=== PATIENT | female | born 1945 | race Caucasian/White ===

== ENCOUNTER 2022-08-30 08:02 | Emergency (ER) | payer MEDICARE, OTHER, SELFPAY ==
[2022-08-30 08:03] VITALS: BP 144/92; PULSE 72; RESP 16; TEMP 36.5; O2SAT 98; BMI 46.4
[2022-08-30] MEDS: Glucagon 1 MG/ML Syringe IV (08:34)
--- NOTE | 2022-08-30 08:40 | EX.ED.DYSGE1 ---
HPI History of Present Illness Chief Complaint: Foreign Body Informant: patient Narrative Narrative: Presents by EMS due to pill obstruction. Patient states this morning took 4 of her morning pills at 1 time 3 of a more large, she started choking having trouble breathing and swallowing. She called EMS. Currently no trouble breathing. No issues in the past. Had endoscopy years ago with no interventions. She states she was scared therefore called EMS. She is on Xarelto and baby aspirin history of paroxysmal A-fib. Prior similar symptoms: No PFSH PFS Medical History Atherosclerosis of coronary artery of [place] heart without angina pectoris Elevated coronary artery calcium score (~05/26/20) Essential hypertension History of [place] (myocardial infarction) History of pancreatitis Hyperlipidemia Osteoporosis Paroxysmal atrial fibrillation Paroxysmal atrial flutter PVD (peripheral vascular disease) SVT (supraventricular tachycardia) Type 2 diabetes mellitus Home Medications cholecalciferol (vitamin D3) 50 mcg (2,000 unit) tablet 50 mcg PO DAILY 02/08/22 [History Last Taken Unknown] cyanocobalamin (vitamin B-12) 5,000 mcg sublingual tablet (Vitamin B-12) 5,000 mcg sublingual DAILY 02/08/22 [History Last Taken Unknown] dulaglutide 3 mg/0.5 mL subcutaneous pen injector (Trulicity) 3 mg subcut QWEEK 02/08/22 [History Last Taken Unknown] aspirin 81 mg tablet,delayed release (Adult Aspirin Regimen) 81 mg PO DAILY #90 tabs 02/23/22 [Rx Last Taken Unknown] empagliflozin 25 mg-metformin ER 1,000 mg tablet,extended release 24hr (Synjardy XR) 1 tab PO DAILY #90 ea 02/23/22 [Rx Last Taken Unknown] metformin 1,000 mg tablet 1,000 mg PO DAILY #90 tabs 02/23/22 [Rx Last Taken Unknown] metoprolol tartrate 25 mg tablet 25 mg PO BID #180 tabs 02/23/22 [Rx Last Taken Unknown] rivaroxaban 20 mg tablet (Xarelto) 20 mg PO DAILY #90 tabs 02/23/22 [Rx Last Taken Unknown] rosuvastatin 5 mg tablet 5 mg PO DAILY #90 tabs 02/23/22 [Rx Last Taken Unknown] valsartan 320 mg tablet 320 mg PO DAILY #90 tabs 02/23/22 [Rx Last Taken Unknown] Allergy/AdvReac Type Severity Reaction Status Date / Time adhesive tape Allergy Unknown Unknown Verified 08/30/22 08:08 niacin Allergy Unknown unknown Verified 08/30/22 08:08 sitagliptin [From Januvia] Allergy Unknown Unknown Verified 08/30/22 08:08 [id number] Reductase Allergy Unknown Intolerant Verified 08/30/22 08:08 Inhibitor Family History Mother CVA (cerebral vascular accident) Father CAD (coronary artery disease) CVA (cerebral vascular accident) Myocardial infarction, Onset Age: 40 Diabetes Hypertension Sister CAD (coronary artery disease) CABG Grandmother Diabetes CVA (cerebral vascular accident) Aunt Breast cancer Surgical History History of History of cholecystectomy History of colonoscopy History of coronary artery stent placement (2014) Social History Smoking Status: Never smoker alcohol intake: never ROS ROS ED Constitutional Constitutional ED: Denies chills, fever(s) or sweats Eyes Eyes: Denies change in vision ENT ENT ED: Reports dysphagia; Denies sore throat Cardiovascular Cardiovascular: Denies chest pain, leg edema, palpitations or racing heartbeat Respiratory/Chest Respiratory/Chest: Denies cough, dyspnea or dyspnea on exertion Gastrointestinal Gastrointestinal: Denies abdominal pain, diarrhea, nausea or vomiting Genitourinary Genitourinary ED: Denies dysuria, hematuria or urinary frequency Musculoskeletal Musculoskeletal: Denies back pain, extremity pain or neck pain Integumentary Denies rash or wounds Neurologic Neurologic: Denies headache(s), paresthesias or weakness EXAM Physical Exam Const Vital Signs: 08/30/22 08:03 Temperature 97.7 F L Temperature Source Oral Pulse Rate 72 Respiratory Rate 16 Blood Pressure 144/92 H Blood Pressure Mean 109 Pulse Ox 98 Oxygen Delivery Method Room Air Positive well nourished and well developed Constitutional Narrative: For stating maintaining her airway General Appearance ED: well developed and NAD HEENT Reports moist mucous membranes HEENT Narrative: No posterior pharyngeal erythema, no stridor. normocephalic and atraumatic Eyes PERRL, EOMs intact bilaterally and conjunctivae normal General Eye ED: Yes normal appearance of both eyes Neck no lymphadenopathy and supple General: Negative for tenderness Chest Wall Chest: Negative for tenderness Resp normal respiratory effort and normal air movement Effort and Inspection: symmetric chest movement; Negative for respiratory distress Cardio regular rate, regular rhythm and no murmurs Peripheral Pulses: pulses 2+ throughout GI normal to inspection, nondistended, normoactive bowel sounds and non-tender Palpation: Negative for guarding or rebound tenderness present Back/Spine no CVA tenderness and no thoracic nor lumbar tenderness Extremity normal to inspection General Extremety ED: Negative for edema or tenderness General Extremity: Negative for edema Neuro oriented x3 and no sensory deficits noted Sensorium / Orientation: awake and alert Skin no rashes or lesions noted and no wounds MDM MDM MDM Narrative Medical decision making narrative: Interventions / MDM: Differential diagnosis: Esophageal obstruction, transient aspiration Diagnosis considered but do not suspect: N/A My EKG interpretation: N/A Imaging independently reviewed and interpreted by myself: N/A External documents reviewed: N/A Test considered but not ordered:N/A ED course: Patient vital stable 98% on room air. I was bedside evaluate patient, I attempted: Drink, immediately she started vomiting with a small sip. IV established, will try IV glucagon. Basic labs and coags obtained due to patient being on Xarelto. 0925: Labs are stable, reevaluation room, attempted carbonation drink again bedside she is able to hold things down however felt some discomfort, therefore use water and she is able to drink it down smoothly and symptoms felt like it improved. Re-evaluation: 1020: Symptoms remain improved she drank a cola again and stayed down no return of symptoms. With acute onset, do not PPI as needed at this time as it resolved quickly. She aspirated likely initially, however no respiratory complaints on multiple reevaluations. 90% room air. She is given outpatient follow-up with GI instructed to swallow her pills 1 at a time. All questions were answered. Disposition discussed with patient/family/significant other: Patient Case discussed with consulting clinician: N/A This note was generated with [employer] dictation software. It may contain incorrect words, spelling, and punctuation that were not noted in checking the note before signing. Lab Data Attestation: I reviewed the patient's lab results. Labs: Laboratory Results - last 24 hr 08/30/22 08:35 WBC 8.2 RBC 5.46 H Hgb 16.7 H Hct 50.7 H MCV 92.9 MCH 30.6 MCHC 32.9 RDW Std Deviation 42.6 RDW Coeff of Serina 12.5 Plt Count 235 MPV 9.9 Immature Gran % (Auto) 0.400 Neut % (Auto) 69.2 Lymph % (Auto) 18.8 L Williams % (Auto) 9.5 Eos % (Auto) 1.6 Baso % (Auto) 0.5 Absolute Neuts (auto) 5.7 Absolute Lymphs (auto) 1.54 Nucleated RBC % 0 PT 17.2 H INR 1.4 APTT 39.0 H Sodium 137 Potassium 4.3 Chloride 103 Carbon Dioxide 28.0 Anion Gap 6 BUN 16 Creatinine 0.93 Estim Creat Clear Calc 41.34 Est GFR (MDRD) Af Amer 76 Est GFR (MDRD) Non-Af 63 BUN/Creatinine Ratio 17.3 Glucose 204 H Calcium 9.4 Discharge Plan Triage Chief Complaint: Foreign Body ED Provider: Boo Mar Dx/Rx/DC Orders Clinical Impression: Acute esophageal obstruction Instructions: ED Esophageal Foreign Body, Resolved Prescriptions: No Action Trulicity 3 mg/0.5 mL pen injector 3 mg subcut QWEEK cyanocobalamin (vitamin B-12) [Vitamin B-12] 5,000 mcg tablet, sublingual 5,000 mcg sublingual DAILY cholecalciferol (vitamin D3) 50 mcg (2,000 unit) tablet 50 mcg PO DAILY aspirin [Adult Aspirin Regimen] 81 mg tablet,delayed release (DR/EC) 81 mg PO DAILY Qty: 90 3RF metoprolol tartrate 25 mg tablet 25 mg PO BID Qty: 180 3RF Xarelto 20 mg tablet 20 mg PO DAILY Qty: 90 3RF Rx Instructions: must administer with evening meal rosuvastatin 5 mg tablet 5 mg PO DAILY Qty: 90 3RF valsartan 320 mg tablet 320 mg PO DAILY Qty: 90 3RF Synjardy XR 25-1,000 mg tablet, IR - ER, biphasic 24hr 1 tab PO DAILY Qty: 90 3RF metformin 1,000 mg tablet 1,000 mg PO DAILY Qty: 90 3RF Primary Care Provider: Rekha Geronimo Referrals: Rekha Geronimo DO [Primary Care Provider] - Friend,Abram, DO [Med Staff - Active Staff] - 1-2 Weeks Activity Restrictions/Additional Instructions: Take your pills 1 at a time and drink plenty of water afterwards. Follow-up with Dr. Haile WHITNEY for outpatient evaluation. Disposition Disposition: Home, Self Care
[2022-08-30 08:49] LABS: Absolute Lymphocyte Count 1.54 X10^3/uL (0.83-4.51); Absolute Neutrophil Count 5.7 X10^3/uL (2.0-7.7); Basophil# 0.04 X10^3/uL; Basophil% 0.5 % (0-1); Eosinophil# 0.13 X10^3/uL; Eosinophils% 1.6 % (0-5); Hematocrit 50.7 % (37-47); Hemoglobin 16.7 g/dL (12.0-15.0); Lymphocyte # 1.54 X10^3/ul (0.83-4.51); Lymphocyte % 18.8 % (19-41); Mean Corp Hgb Conc 32.9 g/dL (32-36); Mean Corpuscular Hgb 30.6 pg (27.0-32.0); Mean Corpuscular Volume 92.9 fL (81-99); Mean Platelet Vol. 9.9 fl (6.2-12.0); Monocyte# 0.78 X10^3/uL; Monocyte% 9.5 % (0-10); NRBC Flagged by Analyzer 0 % (0-5); Neutrophil # 5.65 X10^3/uL (2.7-7.7); Neutrophil % 69.2 % (47-70); Platelet Count 235 K/mm3 (150-450); RBC Distribution Width CV 12.5 % (11.6-14.6); RBC Distribution Width SD 42.6 fl (35.1-43.9); Red Blood Count 5.46 M/mm3 (4.2-5.4); White Blood Count 8.2 K/mm3 (4.4-11.0)
[2022-08-30 09:03] LABS: Anion Gap 6 (5-15); BUN 16 mg/dL (7-18); BUN/Creat Ratio 17.3 RATIO (10-20); Calcium,Total 9.4 mg/dL (8.5-10.1); Chloride 103 mmol/L (98-107); Creatinine, Serum 0.93 mg/dL (0.55-1.02); EST Glomerular Filtration Rate 63 mL/min (>60); Est Glom Filt Rate - Afr Amer 76 mL/min (>60); Estimated Creatinine Clearance 41.34 ml/min; Glucose 204 mg/dL (74-106); Potassium 4.3 mmol/L (3.5-5.1); Sodium Level 137 mmol/L (136-145)
[2022-08-30 09:37] LABS: International Normalized Ratio 1.4; Prothrombin Time (Protime)PT. 17.2 SECONDS (11.7-14.9)
[2022-08-30 10:53] VITALS: BP 123/71; PULSE 72; RESP 16; O2SAT 94
== END 2022-08-30 10:55 | disposition home or self-care (01) ==
PROVIDERS: Emergency Provider Emergency Medicine; PCP Family Medicine; Visit Provider Emergency Medicine
DX: K22.2 Esophageal obstruction (principal); I48.0 Paroxysmal atrial fibrillation; E11.9 Type 2 diabetes mellitus without complications; I25.10 Atherosclerotic heart disease of native coronary artery without angina pectoris; I10 Essential (primary) hypertension; E78.5 Hyperlipidemia, unspecified; Z79.01 Long term (current) use of anticoagulants; I25.2 Old myocardial infarction
CPT/HCPCS: 80048; 85025; 85610; 85730; 96374; 99285; A4216; J1610

== ENCOUNTER 2022-09-02 07:13 | Emergency (ER) | payer MEDICARE, OTHER, SELFPAY ==
[2022-09-02 07:14] VITALS: BP 169/94; PULSE 75; RESP 16; TEMP 36.6; O2SAT 95; BMI 45.8
--- NOTE | 2022-09-02 07:20 | EDS_ITS ---
HPI History of Present Illness Chief Complaint: Dizziness [facility] Medical History Atherosclerosis of coronary artery of [place] heart without angina pectoris Elevated coronary artery calcium score (~05/26/20) Essential hypertension History of [place] (myocardial infarction) History of pancreatitis Hyperlipidemia Osteoporosis Paroxysmal atrial fibrillation Paroxysmal atrial flutter PVD (peripheral vascular disease) SVT (supraventricular tachycardia) Type 2 diabetes mellitus Home Medications cholecalciferol (vitamin D3) 50 mcg (2,000 unit) tablet 50 mcg PO DAILY 02/08/22 [History Last Taken Unknown] cyanocobalamin (vitamin B-12) 5,000 mcg sublingual tablet (Vitamin B-12) 5,000 mcg sublingual DAILY 02/08/22 [History Last Taken Unknown] dulaglutide 3 mg/0.5 mL subcutaneous pen injector (Trulicity) 3 mg subcut QWEEK 02/08/22 [History Last Taken Unknown] aspirin 81 mg tablet,delayed release (Adult Aspirin Regimen) 81 mg PO DAILY #90 tabs 02/23/22 [Rx Last Taken Unknown] empagliflozin 25 mg-metformin ER 1,000 mg tablet,extended release 24hr (Synjardy XR) 1 tab PO DAILY #90 ea 02/23/22 [Rx Last Taken Unknown] metformin 1,000 mg tablet 1,000 mg PO DAILY #90 tabs 02/23/22 [Rx Last Taken Unknown] metoprolol tartrate 25 mg tablet 25 mg PO BID #180 tabs 02/23/22 [Rx Last Taken Unknown] rivaroxaban 20 mg tablet (Xarelto) 20 mg PO DAILY #90 tabs 02/23/22 [Rx Last Taken Unknown] rosuvastatin 5 mg tablet 5 mg PO DAILY #90 tabs 02/23/22 [Rx Last Taken Unknown] valsartan 320 mg tablet 320 mg PO DAILY #90 tabs 02/23/22 [Rx Last Taken Unknown] Allergy/AdvReac Type Severity Reaction Status Date / Time adhesive tape Allergy Unknown Unknown Verified 08/30/22 08:08 niacin Allergy Unknown unknown Verified 08/30/22 08:08 sitagliptin [From Januvia] Allergy Unknown Unknown Verified 08/30/22 08:08 [id number]-[id number]-PrD Reductase Allergy Unknown Intolerant Verified 08/30/22 08:08 Inhibitor Family History Mother CVA (cerebral vascular accident) Father CAD (coronary artery disease) CVA (cerebral vascular accident) Myocardial infarction, Onset Age: 40 Diabetes Hypertension Sister CAD (coronary artery disease) CABG Grandmother Diabetes CVA (cerebral vascular accident) Aunt Breast cancer Surgical History History of History of cholecystectomy History of colonoscopy History of coronary artery stent placement (2014) Social History Smoking Status: Never smoker alcohol intake: never EXAM Physical Exam Const Vital Signs: 09/02/22 07:14 09/02/22 07:14 Temperature 98 F 98 F Temperature Source Temporal Temporal Pulse Rate 75 75 Respiratory Rate 16 16 Blood Pressure 169/94 H 169/94 H Blood Pressure Mean 119 119 Pulse Ox 95 95 Oxygen Delivery Method Room Air Room Air MDM MDM MDM Narrative Medical decision making narrative: HISTORY OF PRESENT ILLNESS: 77-year-old female here with concern for dizziness/lightheadedness. Patient notes transient lightheadedness, dizziness, diaphoresis, bilateral upper extremity numbness and tingling that was transient and has since resolved. She further states she developed cute onset of diaphoresis, lightheadedness and bilateral upper extremity numbness and tingling last for approximate 20 minutes and resolve spontaneously. Denies any loss of consciousness. Denies any chest pain. Denies any focal numbness or weakness at this time. Recent bleeding diathesis. Does note she did not take adequate p.o. 3 days ago secondary to esophageal pill obstruction but no she is drinking extra fluids since then. Denies any urinary complaints. REVIEW OF SYSTEMS: Pertinent positives: Dizziness, lightheadedness, diaphoresis, numbness and tingling Pertinent negatives: Focal weakness, slurred speech, chest pain, syncope PHYSICAL EXAM: Nursing triage notes reviewed, Vital signs reviewed Constitutional: please see mdm HENT: MMM Eyes: Pupils equal round and reactive to light, Extraocular muscles intact Neck: No stridor, no JVD, full neck ROM Lungs: Clear to auscultation, No wheezing or rales. No increased work of breathing, no conversational dyspnea, no accessory muscle use, no nasal flaring. No respiratory distress noted Heart: Regular rate and rhythm, No murmurs, No rubs and No gallops, 2+ distal pulses (radial, femoral, posterior tibial) in all extremities Abdomen: Soft, there is no tenderness, rigidity, rebound or guarding, no obvious peritoneal signs, no palpable pulsatile abdominal masses, no auscultated abdominal bruit : No CVAT Extremities: No edema Neuro: Alert and oriented x3, neuro exam at baseline, cranial nerves II through XII are intact. No pain with extraocular muscle movement. There is negative test of skew. Normal speech. 5 of 5 strength in upper and lower extremities in flexion extension. Intact sensation to light touch in upper and lower extremity dermatomes. No truncal or extremity ataxia. No dysdiadochokinesia. Normal gait. 2+ reflexes. No meningeal signs. Negative Babinski. NIH of 0 Skin: No rash or lesions noted MEDICAL DECISION MAKING: Chief Complaint: Lightheadedness External records reviewed: Seen for acute esophageal obstruction on 08/30/2022. This was all spontaneously patient was discharged Factors affecting care: Paroxysmal A-fib on Xarelto Social determinants of health: Elderly History obtained from others: EMS Consults: none ALL IMAGES (IF OBTAINED) HAVE BEEN PERSONALLY REVIEWED AND INTERPRETED BY MYSELF. EMS EKG showed normal sinus rhythm, left axis deviation, no STEMI MDM Narrative: Patient was hemodynamically stable, afebrile, nontoxic-appearing. Neurologic exam was nonfocal. Negative hints exam. I considered the following differential diagnosis: Dehydration, ACS, arrhythmia, posterior circulation CVA, anemia, electrolyte disturbance Given nonfocal neuro exam with no evidence of ataxia, focal neurodeficits or signs of posterior circulation stroke I do not think the patient is having an acute CVA. I was more concerned about arrhythmia, anemia, electrolyte abnormalities, ACS, dehydration especially in the setting of recent esophageal pill obstruction. Patient's initial EKG showed a normal sinus rhythm with normal axis and normal intervals, no STEMI. Delta troponin negative. No significant anemia electrolyte abnormality or signs of heart failure. There is no signs of pneumonia or other infection. Patient's symptoms are unclear however likely not life-threatening given negative work-up. Recommend increase p.o. intake and follow-up with her primary care physician as an outpatient. I completed a structured, evidence-based clinical evaluation to screen for acute stroke and neurologic deficits in this patient. The patient has a normal detailed neurologic exam, which is highly sensitive for dangerous causes of dizziness, vertigo, or loss of balance. The evidence indicates that the patient is very low risk for an acute neurologic emergency and this is consistent with my clinical intuition. The risk of further workup or hospitalization is likely higher than the risk of the patient having a stroke or other dangerous neurologic condition. It is, therefore, in the patient?s best interest not to do additional emergent testing or to be hospitalized at this time. Shared Decision-Making I have discussed with the patient my clinical impression and the result of an evidence-based clinical evaluation to screen for stroke, as well as the risk of further testing and hospitalization. The evidence shows that the risk for stroke is less than 1%. Although the risk of stroke has not been completely eliminated, the risks of further testing or hospitalization likely exceed any potential benefit, and the patient agrees with not pursuing further emergent evaluation or hospitalization for stroke evaluation at this time. The patient and/or family, caregivers express understanding. The patient and/or family, caregivers agrees with the plan. Total critical care time today provided was at least 0 minutes. This excludes separately billable procedures. Critical care time (if documented) is secondary to the patient having high probability of clinically significant/life threatening deterioration in the patient's condition which required my urgent intervention. Lab Data Attestation: I reviewed the patient's lab results. Lab results narrative: Troponin is negative, no evidence of myocardial ischemia BNP elevated consistent with increased myocardial stretch BMP without evidence of significant electrolyte abnormalities, no anion gap, no acute kidney injury. CBC without leukocytosis, severe anemia, no thrombocytopenia. Labs: Laboratory Results - last 24 hr 09/02/22 09/02/22 07:15 09:20 WBC 9.8 RBC 5.16 Hgb 15.9 H Hct 47.8 H MCV 92.6 MCH 30.8 MCHC 33.3 RDW Std Deviation 42.5 RDW Coeff of Serina 12.3 Plt Count 226 MPV 10.2 Immature Gran % (Auto) 0.500 Neut % (Auto) 76.8 H Lymph % (Auto) 12.9 L [place] % (Auto) 8.3 Eos % (Auto) 1.1 Baso % (Auto) 0.4 Absolute Neuts (auto) 7.5 Absolute Lymphs (auto) 1.27 Nucleated RBC % 0 Sodium 137 Potassium 4.1 Chloride 103 Carbon Dioxide 26.0 Anion Gap 8 BUN 16 Creatinine 0.85 Estim Creat Clear Calc 45.23 Est GFR (MDRD) Af Amer 84 Est GFR (MDRD) Non-Af 69 BUN/Creatinine Ratio 18.8 Glucose 238 H Calcium 9.0 Troponin I High Sens 14 17 B-Natriuretic Peptide 139.7 H Radiography Chest X-Ray - ED: Read by ED Physician Diagnostic Testing: Clinical Impression(s) from Imaging Studies Chest X-Ray 09/02/22 07:50 IMPRESSION: No radiographic evidence of acute cardiopulmonary disease. Electronically Signed: Elaine Jimenez MD at 8:12 EDT , I have personally reviewed the patient's chest x-ray. Chest x-ray is unremarkable for pulmonary edema, pneumothorax, pneumonia or focal cardiopulmonary abnormality. Discharge Plan Triage Chief Complaint: Dizziness ED Provider: Bravo De La Cruz Dx/Rx/DC Orders Clinical Impression: Dizziness Instructions: Dizziness Fainting Causes Prescriptions: No Action Trulicity 3 mg/0.5 mL pen injector 3 mg subcut QWEEK cyanocobalamin (vitamin B-12) [Vitamin B-12] 5,000 mcg tablet, sublingual 5,000 mcg sublingual DAILY cholecalciferol (vitamin D3) 50 mcg (2,000 unit) tablet 50 mcg PO DAILY aspirin [Adult Aspirin Regimen] 81 mg tablet,delayed release (DR/EC) 81 mg PO DAILY Qty: 90 3RF metoprolol tartrate 25 mg tablet 25 mg PO BID Qty: 180 3RF Xarelto 20 mg tablet 20 mg PO DAILY Qty: 90 3RF Rx Instructions: must administer with evening meal rosuvastatin 5 mg tablet 5 mg PO DAILY Qty: 90 3RF valsartan 320 mg tablet 320 mg PO DAILY Qty: 90 3RF Synjardy XR 25-1,000 mg tablet, IR - ER, biphasic 24hr 1 tab PO DAILY Qty: 90 3RF metformin 1,000 mg tablet 1,000 mg PO DAILY Qty: 90 3RF Primary Care Provider: Rekha Geronimo Referrals: Rekha Geronimo DO [Primary Care Provider] - Activity Restrictions/Additional Instructions: Thank you for trusting us with your care today! Please take Tylenol (2 pills, 650 mg), ibuprofen (2 pills, 400 mg) every 6 hours as needed for pain and fever control. Please return to the emergency department if your symptoms change or worsen. Please follow with your primary care physician for further outpatient evaluation and management. Disposition Disposition: Home, Self Care Discharge Date/Time: 09/02/22 10:41
--- NOTE | 2022-09-02 07:30 | EKG12_ITS ---
Test Reason : dizziness Blood Pressure : / mmHG Vent. Rate : 074 BPM Atrial Rate : 074 BPM P-R Int : 148 ms QRS Dur : 090 ms QT Int : 382 ms P-R-T Axes : 016 -53 073 degrees QTc Int : 424 ms Sinus rhythm with Premature atrial complexes Left axis deviation Lateral infarct , age undetermined Inferior-posterior infarct , age undetermined Abnormal ECG Confirmed by TARUN MCKEON, ELIGIO ([id number]), loan expeditor FRED DINH ([id number]) on 09/03/2022 10:01:42 AM Referred By: Qamar Confirmed By:ELIGIO MCNEIL MD
[2022-09-02 07:48] LABS: Absolute Lymphocyte Count 1.27 X10^3/uL (0.83-4.51); Absolute Neutrophil Count 7.5 X10^3/uL (2.0-7.7); Basophil# 0.04 X10^3/uL; Basophil% 0.4 % (0-1); Eosinophil# 0.11 X10^3/uL; Eosinophils% 1.1 % (0-5); Hematocrit 47.8 % (37-47); Hemoglobin 15.9 g/dL (12.0-15.0); Lymphocyte # 1.27 X10^3/ul (0.83-4.51); Lymphocyte % 12.9 % (19-41); Mean Corp Hgb Conc 33.3 g/dL (32-36); Mean Corpuscular Hgb 30.8 pg (27.0-32.0); Mean Corpuscular Volume 92.6 fL (81-99); Mean Platelet Vol. 10.2 fl (6.2-12.0); Monocyte# 0.82 X10^3/uL; Monocyte% 8.3 % (0-10); NRBC Flagged by Analyzer 0 % (0-5); Neutrophil # 7.54 X10^3/uL (2.7-7.7); Neutrophil % 76.8 % (47-70); Platelet Count 226 K/mm3 (150-450); RBC Distribution Width CV 12.3 % (11.6-14.6); RBC Distribution Width SD 42.5 fl (35.1-43.9); Red Blood Count 5.16 M/mm3 (4.2-5.4); White Blood Count 9.8 K/mm3 (4.4-11.0)
--- NOTE | 2022-09-02 07:50 | RAD_ITS ---
INDICATION: chest pain EXAMINATION/TECHNIQUE: X-RAY - XR Chest 1 View COMPARISON: No relevant prior comparison study available FINDINGS: LINES/DEVICES: None. LUNGS: No consolidation, edema or effusion. No pneumothorax. MEDIASTINUM AND CARDIOVASCULAR STRUCTURES: Cardiac silhouette not enlarged. Central airways and mediastinal contour are unremarkable. BONES AND SOFT TISSUES: Unremarkable. RAD/Chest 1 View (Portable) IMPRESSION: No radiographic evidence of acute cardiopulmonary disease. Electronically Signed: Elaine Jimenez MD at 8:12 EDT ,
--- NOTE | 2022-09-02 07:57 | NURSING ---
I CALLED THE TRANSFER LINE AGAIN TO GET JAMEL OF HIS ON AIR HOST. WE ARE STILL WAITING FOR A CALL BACK.
[2022-09-02 08:02] LABS: Anion Gap 8 (5-15); BUN 16 mg/dL (7-18); BUN/Creat Ratio 18.8 RATIO (10-20); Chloride 103 mmol/L (98-107); Creatinine, Serum 0.85 mg/dL (0.55-1.02); EST Glomerular Filtration Rate 69 mL/min (>60); Est Glom Filt Rate - Afr Amer 84 mL/min (>60); Estimated Creatinine Clearance 45.23 ml/min; Glucose 238 mg/dL (74-106); Potassium 4.1 mmol/L (3.5-5.1); Sodium Level 137 mmol/L (136-145); Troponin-I HS (w/2H Reflex) 14 pg/mL (3.0-54.0)
[2022-09-02 08:08] LABS: BNP,B-Type NATRIURETIC PEPTIDE 139.7 pg/mL (0-100)
[2022-09-02 09:37] LABS: Reflex Troponin-HS? (from REC) Y
[2022-09-02 09:57] LABS: Troponin-I HS 17 pg/mL (3.0-54.0)
== END 2022-09-02 10:41 | disposition home or self-care (01) ==
PROVIDERS: Emergency Provider Emergency Medicine; PCP Family Medicine; Visit Provider Emergency Medicine
DX: R42 Dizziness and giddiness (principal); I48.0 Paroxysmal atrial fibrillation; E11.9 Type 2 diabetes mellitus without complications; I25.10 Atherosclerotic heart disease of native coronary artery without angina pectoris; I10 Essential (primary) hypertension; E78.5 Hyperlipidemia, unspecified; Z79.01 Long term (current) use of anticoagulants; Z79.899 Other long term (current) drug therapy; Z79.82 Long term (current) use of aspirin; Z79.85 Long-term (current) use of injectable non-insulin antidiabetic drugs; Z79.84 Long term (current) use of oral hypoglycemic drugs; Z90.49 Acquired absence of other specified parts of digestive tract; Z95.5 Presence of coronary angioplasty implant and graft
CPT/HCPCS: 71045; 80048; 83880; 84484; 85025; 93005; 99285; A4216

== ENCOUNTER → 2023-01-05 | Outpatient (CLI) | payer MEDICARE, OTHER, SELFPAY ==
[2023-01-05 12:11] LABS: Absolute Lymphocyte Count 2.24 X10^3/uL (0.83-4.51); Basophil# 0.03 X10^3/uL; Basophil% 0.4 % (0-1); Eosinophil# 0.15 X10^3/uL; Eosinophils% 1.8 % (0-5); Hematocrit 49.5 % (37-47); Hemoglobin 16.1 g/dL (12.0-15.0); Lymphocyte # 2.24 X10^3/ul (0.83-4.51); Lymphocyte % 27.2 % (19-41); Mean Corp Hgb Conc 32.5 g/dL (32-36); Mean Corpuscular Hgb 30.1 pg (27.0-32.0); Mean Corpuscular Volume 92.7 fL (81-99); Mean Platelet Vol. 10.4 fl (6.2-12.0); Monocyte# 0.81 X10^3/uL; Monocyte% 9.8 % (0-10); NRBC Flagged by Analyzer 0 % (0-5); Neutrophil # 4.99 X10^3/uL (2.7-7.7); Neutrophil % 60.6 % (47-70); Platelet Count 250 K/mm3 (150-450); RBC Distribution Width CV 12.6 % (11.6-14.6); Red Blood Count 5.34 M/mm3 (4.2-5.4); White Blood Count 8.2 K/mm3 (4.4-11.0)
[2023-01-05 12:30] LABS: ALB/GLOB Ratio 0.9 RATIO (0.9-2.4); AST(SGOT) 15 U/L (15-37); Alanine Aminotransfer ALT/SGPT 23 U/L (13-56); Albumin, Serum 3.4 g/dL (3.2-5.0); Alkaline Phosphatase 56 U/L (45-117); Anion Gap 7 (5-15); BUN 15 mg/dL (7-18); BUN/Creat Ratio 19.3 RATIO (10-20); Calcium,Total 8.7 mg/dL (8.5-10.1); Chloride 103 mmol/L (98-107); Cholesterol 124 mg/dL (200); Creatinine, Serum 0.78 mg/dL (0.55-1.02); EST Glomerular Filtration Rate 77 mL/min (>60); Est Glom Filt Rate - Afr Amer 93 mL/min (>60); Free T3 2.2 pg/mL (2.18-3.98); Globulin 3.7 g/dL (2.2-4.2); Glucose 169 mg/dL (74-106); High Density Lipoprotein 53 mg/dL; Potassium 4.5 mmol/L (3.5-5.1); Protein, Total 7.1 g/dL (6.4-8.2); Sodium Level 139 mmol/L (136-145); T4 Free Direct 1.38 ng/dL (0.76-1.46); Thyroid Stim Hormone (TSH) 3.32 uIU/mL (0.358-3.74); Triglycerides 233 mg/dL; Very Low Density Lipoprotein 47 mg/dL (5-40)
[2023-01-05 12:34] LABS: Microalbumin,Random Urine 7.3 mg/L (NO RANGE EST.); Microalbumin:Creatinine Ratio 7.7 mg/g CRE (<30 mg/g CRE)
[2023-01-05 12:48] LABS: Hemoglobin A1c 7.1 % (3.8-5.6)
== END | disposition home or self-care (01) ==
LOC: BFHLAB 08:42
PROVIDERS: PCP Family Medicine; Referring Provider Family Medicine; Visit Provider Family Medicine
DX: E11.9 Type 2 diabetes mellitus without complications (principal); I10 Essential (primary) hypertension; Z51.81 Encounter for therapeutic drug level monitoring; E78.5 Hyperlipidemia, unspecified
CPT/HCPCS: 36415; 80053; 80061; 82043; 82570; 83036; 84439; 84443; 84481; 85025

== ENCOUNTER → 2023-05-25 | Outpatient (CLI) | payer MEDICARE, OTHER, SELFPAY ==
--- NOTE | 2023-05-25 17:31 | STRESSREP ---
Stress Test Report Pharmacologic myocardial perfusion stress test. 78-year-old lady with a history of coronary disease Resting EKG demonstrates sinus rhythm with a rate of 64 bpm. Resting blood pressure is 138/74 mmHg. 0.4 mg of regadenoson was infused per usual protocol followed by rapid intravenous saline flush injection. Continuous EKG monitoring was performed. The maximum heart rate was 93 bpm which was 64% of max impacted heart rate the maximum workload was 1 metabolic equivalent. At rest there were no ST or T wave changes noted to suggest ischemia and at peak infusion nonspecific ST changes were noted which did not meet the criteria for ischemia. No clinical angina is noted. The final blood pressure was 138/80 mmHg. Myocardial perfusion protocol. 14.8 mCi of technetium 99m sestamibi was injected at rest. 0.4 mg of regadenoson was infused per usual protocol. At peak infusion 44.5 mCi of technetium 99m sestamibi was injected stress images were obtained stress and rest images were reconstructed and compared in the short axis vertical long and horizontal long axis. Gated images were also obtained. Perfusion SPECT analysis: Review of the stress images demonstrate normal uptake of tracer noted in all areas of the myocardium. There is an extensive area in the lateral wall with a defect extending to the anterolateral wall. The apex is also involved. The resting images similarly demonstrated the uptake as well as the defect in the anterolateral and lateral wall with minimal armando-infarct ischemia. Gated SPECT analysis: The gated ejection fraction is 45%. Conclusion: [Mildly abnormal] pharmacologic myocardial perfusion stress test. Previous extensive lateral infarct Minimal armando-infarct Mildly reduced ejection fraction.
== END | disposition home or self-care (01) ==
LOC: CVS 06:46
PROVIDERS: PCP Family Medicine; Referring Provider Internal Medicine Cardiovascular Disease; Visit Provider Internal Medicine Cardiovascular Disease
DX: R93.1 Abnormal findings on diagnostic imaging of heart and coronary circulation (principal); I25.10 Atherosclerotic heart disease of native coronary artery without angina pectoris
CPT/HCPCS: 78452; 93017; A9500; A4216; J2785

== ENCOUNTER → 2023-08-01 | Outpatient (CLI) | payer MEDICARE, OTHER, SELFPAY ==
--- NOTE | 2023-08-01 12:22 | BI_ITS ---
MAMMOGRAPHY - BILATERAL SCREENING REASON FOR EXAM: Female, 78 years old. Routine annual screening examination. PERTINENT HISTORY: Aunt with breast cancer. TECHNIQUE: Digital bilateral breast juan (3D mammographic acquisition) in the CC and MLO projections. 2-D mediolateral oblique (MLO) and craniocaudad (CC) views of both breasts were obtained. CAD: Full Field Digital Mammography with Computer Added Detection was performed. COMPARISON: Comparison is made with prior outside examination dated December 12, 2019. FINDINGS: Breast Composition: The breasts are almost entirely fatty. There are no dominant masses or suspicious calcifications. No other significant abnormalities are identified. There has been no significant change since the prior study. BI/SCRN MAMM (CAD)W/JUAN BILAT IMPRESSION: Stable bilateral screening mammogram. Yearly follow-up mammogram recommended. (A) ASSESSMENT CATEGORY: BIRADS Category 1: Negative. A letter regarding these results will be sent to the patient by the facility within 30 days. Approximately 10% of breast cancers are not detected by mammography. A normal mammogram should not delay biopsy of a clinically suspicious abnormality. [id number] Electronically Signed: Alessandro Chambers MD at 14:12 EDT ,
== END | disposition home or self-care (01) ==
LOC: OPBI 12:20
PROVIDERS: PCP Family Medicine; Referring Provider Family Medicine; Visit Provider Family Medicine
DX: Z12.31 Encounter for screening mammogram for malignant neoplasm of breast (principal); Z80.3 Family history of malignant neoplasm of breast
CPT/HCPCS: 77063; 77067

== ENCOUNTER → 2024-05-03 | Outpatient (CLI) | payer MEDICARE, OTHER, SELFPAY ==
--- NOTE | 2024-05-03 13:43 | ECHOCS_ITS ---
Reason For Study Reason For Study: REDUCED EF Procedure This was a 2D Doppler, Color Flow transthoracic echocardiogram. The study was technically difficult. Contrast injection was performed. Exam performed in department. Left Ventricle Normal LV size. Left ventricular systolic function is normal. The left ventricular ejection fraction is 60 %. Stage 1 diastolic dysfunction. No regional wall motion abnormalities noted. Right Ventricle Normal RV size. Normal systolic function. Atria Normal left atrium. Normal right atrium. Mitral Valve Normal mitral valve. Tricuspid Valve Normal tricuspid valve. Aortic Valve Trisinus/trileaflet aortic valve. Pulmonic Valve The pulmonic valve is not well visualized. Great Vessels Normal aortic root. The pulmonary artery is normal size. Inferior vena cava collapse with respiration. Pericardium/Pleural No pericardial effusion. Medication 22 gauge I.V. with prn adaptor inserted into right arm. Diluted definity 1.5ml given slow IV push to enhance endocardial definition. MMode/2D Measurements & Calculations LVIDd: 4.2 cm IVSd: 1.6 cm LVOT diam: 2.0 cm LVIDs: 2.8 cm LVPWd: 1.6 cm FS: 32.1 % LVOT area: 3.1 cm2 Ao root diam: 3.4 cm LAV(MOD-bp): 72.9 ml LVAd ap4: 27.5 cm2 LAV(MOD-bp) Indexed: 33.6 ml/m2 LVLd ap4: 8.7 cm LAV(MOD-sp2): 72.0 ml EDV(MOD-sp4): 70.3 ml LAV(MOD-sp4): 67.2 ml EDV(sp4-el): 74.0 ml LVAs ap4: 16.6 cm2 LVLs ap4: 7.3 cm ESV(MOD-sp4): 30.1 ml ESV(sp4-el): 32.2 ml EF(MOD-sp4): 57.2 % EF(sp4-el): 56.5 % SV(MOD-sp4): 40.2 ml SV(sp4-el): 41.8 ml LA A4 area: 21.6 cm2 SI(MOD-sp4): 18.5 ml/m2 LA dimension(2D): 5.0 cm RA A4 area: 14.6 cm2 Time Measurements MV dec time: 0.26 sec Doppler Measurements & Calculations MV E max james: 86.2 cm/sec Lat Peak E' James: 9.0 cm/sec Med Peak E' James: 7.6 cm/sec MV A max james: 107.2 cm/sec E/E' lat: 9.5 E/E' med: 11.3 MV E/A: 0.80 MV V2 max: 124.8 cm/sec MV dec slope: 334.0 cm/sec2 Ao V2 max: 143.7 cm/sec MV max P.2 mmHg Ao max P.3 mmHg MV V2 mean: 65.9 cm/sec Ao V2 mean: 101.0 cm/sec MV mean P.0 mmHg Ao mean P.6 mmHg MV V2 VTI: 30.1 cm Ao V2 VTI: 35.0 cm MVA(VTI): 2.3 cm2 AV (velocity ratio): 0.64 PRICE(I,D): 2.0 cm2 PRICE(V,D): 2.2 cm2 LV V1 max: 101.9 cm/sec SV(LVOT): 69.5 ml PA V2 max: 113.5 cm/sec LV V1 max P.2 mmHg PA V2 mean: 79.3 cm/sec LV V1 mean P.6 mmHg LV V1 mean: 75.5 cm/sec LV V1 VTI: 22.4 cm ECHO/Echo Complete W/ Contrast Interpretation Summary Normal LV size. Left ventricular systolic function is normal. The left ventricular ejection fraction is 60 %. Stage 1 diastolic dysfunction. Contrast injection was performed. Ordering Physician: Oscar Uribe Referring Physician: Oscar Uribe Performed By: Lynette Lopez RCS
== END | disposition home or self-care (01) ==
LOC: CVS 13:42
PROVIDERS: PCP Family Medicine; Referring Provider Nurse Practitioner Family; Visit Provider Nurse Practitioner Family
DX: I25.10 Atherosclerotic heart disease of native coronary artery without angina pectoris (principal)
CPT/HCPCS: 93306; Q9957; A4216; C8929

== ENCOUNTER → 2024-08-22 | Outpatient (CLI) | payer MEDICARE, OTHER, SELFPAY ==
[2024-08-22 12:17] LABS: Hematocrit 47.8 % (37-47); Hemoglobin 16.0 g/dL (12.0-15.0); Immature Granulocytes Count 0.020 X10^3/uL (0.0-0.0); Mean Corp Hgb Conc 33.5 g/dL (32-36); Mean Corpuscular Volume 89.8 fL (81-99); Mean Platelet Vol. 10.3 fl (6.2-12.0); NRBC Flagged by Analyzer 0 % (0-5); Platelet Count 277 K/mm3 (150-450); RBC Distribution Width CV 12.9 % (11.6-14.6); RBC Distribution Width SD 42.3 fl (35.1-43.9); Red Blood Count 5.32 M/mm3 (4.2-5.4); White Blood Count 8.1 K/mm3 (4.4-11.0)
[2024-08-22 13:08] LABS: Creatinine, Urine (random) 79.30 mg/dL (28.00-217.00); Microalbumin,Random Urine < 12.0 mg/L (<20 mg/L)
[2024-08-22 13:13] LABS: AST(SGOT) 19 U/L (<=31); Alanine Aminotransfer ALT/SGPT 15 U/L (<=34); Albumin, Serum 3.9 g/dL (3.4-4.8); Alkaline Phosphatase 81 U/L (35-104); Anion Gap 14 (5-15); BUN 15 mg/dL (4-19); BUN/Creat Ratio 19.4 RATIO (10-20); Calcium,Total 9.6 mg/dL (7.6-11.0); Carbon Dioxide 23.0 mmol/L (21.0-32.0); Chloride 100 mmol/L (98-108); Cholesterol 218 mg/dL (<=200); Free T3 2.6 pg/mL (2.18-3.98); Globulin 3.1 g/dL (2.2-4.2); Glucose 164 mg/dL (70-99); Low Density Lipoprotein Calc. 95 mg/dL; Potassium 4.1 mmol/L (3.3-5.1); Triglycerides 358 mg/dL; Very Low Density Lipoprotein 72 mg/dL (5-40); cholesterol:hdl ratio screen 4.23
== END | disposition home or self-care (01) ==
LOC: BFHLAB 08:33
PROVIDERS: PCP Family Medicine; Visit Provider Family Medicine
DX: E11.9 Type 2 diabetes mellitus without complications (principal); I10 Essential (primary) hypertension; Z51.81 Encounter for therapeutic drug level monitoring; E78.5 Hyperlipidemia, unspecified
CPT/HCPCS: 36415; 80053; 80061; 82043; 82570; 83036; 84439; 84443; 84481; 85025

== ENCOUNTER → 2024-10-10 | Outpatient (CLI) | payer MEDICARE, OTHER, SELFPAY ==
--- NOTE | 2024-10-10 10:58 | BI_ITS ---
EXAM: SCRN MAMM (CAD)W/JUAN BILAT DATE: 10/10/2024 CLINICAL HISTORY: F, Age 79 y/o , SCREENING Aunt with breast cancer. TECHNIQUE: Procedure Code: [id number] Modality: MG Procedure: SCRN MAMM (CAD)W/JUAN BILAT COMPARISON: Prior exam(s) dated August 01, 2023.. FINDINGS: TISSUE DENSITY: The breasts are almost entirely fatty. Bilateral Breast Mammographic Findings: No significant masses, calcifications or other abnormalities are identified. Stable bilateral secretory calcifications. Stable bilateral fat containing axillary lymph nodes. No suspicious masses, areas of developing architectural distortion, or suspicious calcifications. There has been no significant interval change. BI/SCRN MAMM (CAD)W/JUAN BILAT IMPRESSION: Stable screening bilateral mammogram. OVERALL FINAL ASSESSMENT BI-RADS 2: BENIGN RECOMMENDATION: Routine annual follow-up in 1 Year A letter with findings and recommendations will be mailed to the patient. [id number]
== END | disposition home or self-care (01) ==
LOC: OPBI 10:56
PROVIDERS: PCP Family Medicine; Referring Provider Family Medicine; Visit Provider Family Medicine
DX: Z12.31 Encounter for screening mammogram for malignant neoplasm of breast (principal); Z80.3 Family history of malignant neoplasm of breast
CPT/HCPCS: 77063; 77067